=== PATIENT | male | born 1965 | race African-American/Black ===

== ENCOUNTER 2018-08-15 22:04 | Inpatient (IN) | payer MEDICARE, OTHER ==
[~2018-08-15] VITALS: Ht 322.6 cm; Wt 188.6 kg
[~2018-08-15 22:04] MED LIST: temazepam 15mg capsule PO PRN
[2018-08-15 22:28] LABS: BASOPHILS % (AUTO) 0.1 % (0-1); EOSINOPHILS # (AUTO) 0.1 X10'3 (0-0.9); EOSINOPHILS % (AUTO) 1.3 % (0-6); HEMATOCRIT 43.4 % (42.0-52.0); HEMOGLOBIN 13.9 g/dl (14.0-17.9); LYMPHOCYTES # (AUTO) 1.2 X10'3 (1.1-4.8); LYMPHOCYTES % (AUTO) 14.3 % (21-51); MEAN CORPUSCULAR HEMOGLOBIN 28.5 PG (27.0-31.0); MEAN CORPUSCULAR HGB CONC 32.1 % (33.0-36.5); MEAN CORPUSCULAR VOLUME 88.8 FL (78-98); MEAN PLATELET VOLUME 8.4 FL (7.4-10.4); MONOCYTES # (AUTO) 0.5 X10'3 (0-0.9); MONOCYTES % (AUTO) 6.1 % (2-12); NEUTROPHILS # (AUTO) 6.6 X10'3 (1.8-7.7); NEUTROPHILS % (AUTO) 78.2 % (42-75); PLATELET COUNT 263 X10'3 (140-440); RED BLOOD COUNT 4.89 X10'6 (4.70-6.10); RED CELL DISTRIBUTION WIDTH 15.5 % (11.5-14.5); WHITE BLOOD COUNT 8.5 X10'3 (4.5-11.0)
[2018-08-15] MEDS ORDERED: CARV25TA PO (22:32)
[2018-08-15] MEDS ORDERED: FURO-149 PO (22:32)
[2018-08-15] MEDS ORDERED: SIMV80TA2 PO (22:32)
[2018-08-15 22:45] LABS: ALANINE AMINOTRANSFERASE 26 U/L (12-78); ALBUMIN 2.8 G/DL (3.4-5.0); ALBUMIN/GLOBULIN RATIO 0.5 (1.1-1.5); ALKALINE PHOSPHATASE 102 IU/L (46-116); ANION GAP 6 (8-16); ASPARTATE AMINO TRANSFERASE 18 U/L (10-37); BILIRUBIN,TOTAL 0.1 MG/DL (0.1-1.0); BLOOD UREA NITROGEN 8 MG/DL (7-18); CALCIUM 8.8 MG/DL (8.5-10.1); CHLORIDE 102 MMOL/L (99-107); CREATININE 1.15 MG/DL (0.60-1.10); GLUCOSE 120 MG/DL (70-104); SODIUM 140 MMOL/L (135-145); TOTAL CARBON DIOXIDE 31.9 MMOL/L (24-32); eGFR 66 ML/MIN
[2018-08-15 22:48] LABS: PARTIAL THROMBOPLASTIN TIME 27 SECONDS (22-32); PROTHROMBIN TIME 10.1 SECONDS (9.0-12.0)
[2018-08-15] MEDS ORDERED: heparin 10,000 units/1 ML INJ IV PRN (23:00)
[2018-08-15] MEDS ORDERED: heparin 10,000 units/1 ML INJ IV ONE ×2 (23:00→23:05)
[2018-08-15] MEDS ORDERED: iohexol 350MG/ML 100ml bottle IV ONE (23:04)
[2018-08-15] MEDS ORDERED: ondansetron/PF 4mg/2ml inj IV PRN (23:10)
[2018-08-15] MEDS ORDERED: mag hydrox/Alum hydrox/simeth 30ml oral suspension PO PRN (23:10)
[2018-08-15] MEDS ORDERED: acetaminophen 325mg tablet PO PRN ×2 (23:10)
[2018-08-15] MEDS ORDERED: furosemide 10 MG/1 ML 10ml inj IV ONE (23:10)
[2018-08-15] MEDS ORDERED: diphenhydrAMINE 50 mg/ml inj IV PRN (23:10)
[2018-08-15] MEDS ORDERED: acetaminophen 650mg rectal suppository RC PRN (23:10)
[2018-08-15] MEDS ORDERED: magnesium hydroxide 30ml (MOM) UD suspension PO PRN (23:10)
[2018-08-15] MEDS ORDERED: morphine 2 MG/ML inj. syringe IV PRN (23:10)
[2018-08-15] MEDS ORDERED: metoclopramide 5 mg/ml inj IV PRN (23:10)
[2018-08-15] MEDS ORDERED: bisacodyl 10mg suppository rectal RC PRN (23:10)
[2018-08-15] MEDS ORDERED: HYDROmorphone 1 mg/ml syringe IV PRN (23:10)
[2018-08-15] MEDS ORDERED: diphenhydrAMINE 25mg capsule PO PRN (23:10)
[2018-08-15] MEDS ORDERED: hydrALAZINE 20mg/ml inj. IV PRN (23:20)
[2018-08-15 23:22] LABS: MAGNESIUM 2.3 MG/DL (1.5-2.4); PHOSPHORUS 4.1 MG/DL (2.3-4.5)
[2018-08-15 23:33] LABS: D-DIMER 8.53 MG/L FEU (0-0.50); HEMOGLOBIN A1C 6.2 % (4.5-6.2)
[2018-08-16] VITALS (7 sets, daily range): BP systolic 144–183; BP diastolic 80–114
[2018-08-16] MEDS ORDERED: normal saline 1000ml 1,000 ML IV SCH (00:15)
[2018-08-16 06:03] LABS: BASOPHILS # (AUTO) 0.1 X10'3 (0-0.2); BASOPHILS % (AUTO) 0.8 % (0-1); EOSINOPHILS # (AUTO) 0.2 X10'3 (0-0.9); EOSINOPHILS % (AUTO) 2.3 % (0-6); HEMATOCRIT 42.7 % (42.0-52.0); HEMOGLOBIN 13.6 g/dl (14.0-17.9); LYMPHOCYTES # (AUTO) 1.3 X10'3 (1.1-4.8); LYMPHOCYTES % (AUTO) 17.5 % (21-51); MEAN CORPUSCULAR HEMOGLOBIN 28.3 PG (27.0-31.0); MEAN CORPUSCULAR HGB CONC 31.8 % (33.0-36.5); MEAN CORPUSCULAR VOLUME 89.1 FL (78-98); MEAN PLATELET VOLUME 8.8 FL (7.4-10.4); MONOCYTES # (AUTO) 0.6 X10'3 (0-0.9); MONOCYTES % (AUTO) 7.3 % (2-12); NEUTROPHILS # (AUTO) 5.5 X10'3 (1.8-7.7); NEUTROPHILS % (AUTO) 72.1 % (42-75); PLATELET COUNT 235 X10'3 (140-440); RED BLOOD COUNT 4.79 X10'6 (4.70-6.10); RED CELL DISTRIBUTION WIDTH 15.5 % (11.5-14.5); WHITE BLOOD COUNT 7.7 X10'3 (4.5-11.0)
[2018-08-16 06:21] LABS: PARTIAL THROMBOPLASTIN TIME 29 SECONDS (22-32)
[2018-08-16 06:52] LABS: ALANINE AMINOTRANSFERASE 23 U/L (12-78); ALBUMIN 2.7 G/DL (3.4-5.0); ALBUMIN/GLOBULIN RATIO 0.6 (1.1-1.5); ALKALINE PHOSPHATASE 96 IU/L (46-116); ANION GAP 6 (8-16); ASPARTATE AMINO TRANSFERASE 21 U/L (10-37); BILIRUBIN,TOTAL 0.2 MG/DL (0.1-1.0); BLOOD UREA NITROGEN 9 MG/DL (7-18); BUN/CREATININE RATIO 8.1 (5.4-32.0); CALCIUM 8.7 MG/DL (8.5-10.1); CHLORIDE 103 MMOL/L (99-107); CREATININE 1.11 MG/DL (0.60-1.10); GLUCOSE 115 MG/DL (70-104); POTASSIUM 3.9 MMOL/L (3.5-5.1); SODIUM 141 MMOL/L (135-145); TOTAL PROTEIN 7.6 G/DL (6.4-8.2); eGFR 83 ML/MIN
[2018-08-16 06:55] LABS: CHOL/HDL RATIO 3.9 (0.00-4.99); CHOLESTEROL 154 MG/DL (0-200); HDL CHOLESTEROL 39 MG/DL (35-60); LDL CHOLESTEROL 97 MG/DL (50-100); TRIGLYCERIDES 110 MG/DL (20-135)
[2018-08-16] MEDS ORDERED: levoFLOXACIN-Levaquin 750MG/D5 150 ML IV SCH (08:00)
[2018-08-16] MEDS ORDERED: methylPREDNISolone sod succ 125mg/2ml vial IV SCH (08:00)
[2018-08-16] MEDS: docusate sod 100mg capsule PO SCH ×2 (08:11→20:00)
[2018-08-16] MEDS: famotidine 20mg tablet PO SCH ×2 (08:11→21:22)
[2018-08-16] MEDS: HYDROcodone/acetaminophen 10/325mg tab PO PRN (08:26)
[2018-08-16] MEDS: heparin 25,000 UNIT/250ml bag 250 ML IV SCH ×3 (09:58→10:06)
[2018-08-16] MEDS: furosemide 10 MG/1 ML 10ml inj IV SCH (16:50)
[2018-08-16] MEDS: atorvastatin 20mg tablet PO SCH (21:21)
[2018-08-16] MEDS: carVEDilol 12.5mg tablet PO SCH (21:21)
[2018-08-17] MEDS: furosemide 10 MG/1 ML 10ml inj IV SCH ×3 (00:37→15:34)
[2018-08-17 03:00] VITALS: BP 144/101
[2018-08-17 05:47] LABS: BASOPHILS % (AUTO) 0.2 % (0-1); EOSINOPHILS # (AUTO) 0.1 X10'3 (0-0.9); EOSINOPHILS % (AUTO) 0.5 % (0-6); HEMATOCRIT 43.8 % (42.0-52.0); HEMOGLOBIN 13.9 g/dl (14.0-17.9); LYMPHOCYTES # (AUTO) 1.4 X10'3 (1.1-4.8); LYMPHOCYTES % (AUTO) 11.2 % (21-51); MEAN CORPUSCULAR HEMOGLOBIN 28.2 PG (27.0-31.0); MEAN CORPUSCULAR HGB CONC 31.7 % (33.0-36.5); MEAN PLATELET VOLUME 8.8 FL (7.4-10.4); MONOCYTES # (AUTO) 0.9 X10'3 (0-0.9); MONOCYTES % (AUTO) 7.5 % (2-12); NEUTROPHILS # (AUTO) 9.7 X10'3 (1.8-7.7); NEUTROPHILS % (AUTO) 80.6 % (42-75); PLATELET COUNT 267 X10'3 (140-440); RED BLOOD COUNT 4.92 X10'6 (4.70-6.10); RED CELL DISTRIBUTION WIDTH 15.4 % (11.5-14.5); WHITE BLOOD COUNT 12.1 X10'3 (4.5-11.0)
[2018-08-17 06:00] VITALS: BP 152/104
[2018-08-17 06:05] LABS: ALANINE AMINOTRANSFERASE 22 U/L (12-78); ALBUMIN 2.6 G/DL (3.4-5.0); ALBUMIN/GLOBULIN RATIO 0.5 (1.1-1.5); ALKALINE PHOSPHATASE 97 IU/L (46-116); ANION GAP 5 (8-16); ASPARTATE AMINO TRANSFERASE 18 U/L (10-37); BILIRUBIN,TOTAL 0.2 MG/DL (0.1-1.0); BLOOD UREA NITROGEN 13 MG/DL (7-18); BUN/CREATININE RATIO 11.5 (5.4-32.0); CALCIUM 8.7 MG/DL (8.5-10.1); CHLORIDE 100 MMOL/L (99-107); CREATININE 1.13 MG/DL (0.60-1.10); GLUCOSE 111 MG/DL (70-104); POTASSIUM 4.1 MMOL/L (3.5-5.1); SODIUM 140 MMOL/L (135-145); TOTAL CARBON DIOXIDE 35.1 MMOL/L (24-32); TOTAL PROTEIN 7.8 G/DL (6.4-8.2); eGFR 82 ML/MIN
[2018-08-17] MEDS: docusate sod 100mg capsule PO SCH ×2 (08:26→20:08)
[2018-08-17] MEDS: carVEDilol 12.5mg tablet PO SCH ×2 (08:27→20:08)
[2018-08-17] MEDS: famotidine 20mg tablet PO SCH ×2 (08:27→20:07)
[2018-08-17] MEDS: enoxaparin 40mg/0.4ml syringe SUBCUT SCH (08:28)
[2018-08-17 11:00] VITALS: BP 145/110
[2018-08-17] MEDS: HYDROcodone/acetaminophen 10/325mg tab PO PRN (13:37)
[2018-08-17 15:00] VITALS: BP 150/97
[2018-08-17 18:00] VITALS: BP 141/86
[2018-08-17] MEDS ORDERED: FLU VACC QUAD 2018(5 YR UP)/PF 60 MCG/0.5 ML SYRINGE IM ONE (20:00)
[2018-08-17] MEDS ORDERED: pneumococcal 23-VAL P-sac vacc 25 mcg/0.5ml vial IMVAC ONE (20:00)
[2018-08-17] MEDS: atorvastatin 20mg tablet PO SCH (20:07)
[2018-08-17 22:00] VITALS: BP 173/115
[2018-08-18] VITALS (7 sets, daily range): BP systolic 100–177; BP diastolic 48–119
[2018-08-18] MEDS: furosemide 10 MG/1 ML 10ml inj IV SCH ×3 (00:01→16:15)
[2018-08-18 06:00] LABS: BASOPHILS % (AUTO) 0.2 % (0-1); EOSINOPHILS # (AUTO) 0.1 X10'3 (0-0.9); EOSINOPHILS % (AUTO) 0.8 % (0-6); HEMATOCRIT 46.6 % (42.0-52.0); HEMOGLOBIN 14.8 g/dl (14.0-17.9); LYMPHOCYTES # (AUTO) 1.6 X10'3 (1.1-4.8); LYMPHOCYTES % (AUTO) 15.8 % (21-51); MEAN CORPUSCULAR HEMOGLOBIN 28.3 PG (27.0-31.0); MEAN CORPUSCULAR HGB CONC 31.8 % (33.0-36.5); MEAN CORPUSCULAR VOLUME 89.1 FL (78-98); MEAN PLATELET VOLUME 8.7 FL (7.4-10.4); MONOCYTES # (AUTO) 0.6 X10'3 (0-0.9); MONOCYTES % (AUTO) 5.8 % (2-12); NEUTROPHILS # (AUTO) 7.8 X10'3 (1.8-7.7); NEUTROPHILS % (AUTO) 77.4 % (42-75); PLATELET COUNT 259 X10'3 (140-440); RED BLOOD COUNT 5.23 X10'6 (4.70-6.10); RED CELL DISTRIBUTION WIDTH 15.5 % (11.5-14.5); WHITE BLOOD COUNT 10.1 X10'3 (4.5-11.0)
[2018-08-18 06:34] LABS: ALANINE AMINOTRANSFERASE 21 U/L (12-78); ALBUMIN 2.8 G/DL (3.4-5.0); ALBUMIN/GLOBULIN RATIO 0.5 (1.1-1.5); ALKALINE PHOSPHATASE 110 IU/L (46-116); ANION GAP 2 (8-16); ASPARTATE AMINO TRANSFERASE 20 U/L (10-37); BILIRUBIN,TOTAL 0.2 MG/DL (0.1-1.0); BLOOD UREA NITROGEN 16 MG/DL (7-18); BUN/CREATININE RATIO 12.9 (5.4-32.0); CALCIUM 8.8 MG/DL (8.5-10.1); CHLORIDE 98 MMOL/L (99-107); CREATININE 1.24 MG/DL (0.60-1.10); GLUCOSE 107 MG/DL (70-104); SODIUM 138 MMOL/L (135-145); TOTAL CARBON DIOXIDE 38.3 MMOL/L (24-32); TOTAL PROTEIN 8.1 G/DL (6.4-8.2); eGFR 73 ML/MIN
[2018-08-18] MEDS: docusate sod 100mg capsule PO SCH ×2 (07:43→20:00)
[2018-08-18] MEDS: carVEDilol 12.5mg tablet PO SCH ×2 (07:43→20:44)
[2018-08-18] MEDS: famotidine 20mg tablet PO SCH ×2 (07:44→20:43)
[2018-08-18] MEDS: enoxaparin 40mg/0.4ml syringe SUBCUT SCH (07:45)
[2018-08-18] MEDS: levoFLOXACIN-Levaquin 750MG/D5 150 ML IV SCH (16:14)
[2018-08-18] MEDS: enoxaparin 100mg/ml syringe SUBCUT SCH ×2 (16:26→20:45)
[2018-08-18] MEDS: enoxaparin 50mg/0.5ml (from 3ml vial) syringe SUBCUT SCH ×2 (16:27→20:45)
[2018-08-18] MEDS: atorvastatin 20mg tablet PO SCH (20:43)
[2018-08-19] MEDS: furosemide 10 MG/1 ML 10ml inj IV SCH ×3 (00:34→09:12)
[2018-08-19 00:35] VITALS: BP 162/109
[2018-08-19 02:00] VITALS: BP 158/97
[2018-08-19] MEDS: HYDROcodone/acetaminophen 10/325mg tab PO PRN (02:21)
[2018-08-19 06:45] LABS: BASOPHILS % (AUTO) 0.1 % (0-1); EOSINOPHILS # (AUTO) 0.1 X10'3 (0-0.9); HEMATOCRIT 45.9 % (42.0-52.0); HEMOGLOBIN 14.8 g/dl (14.0-17.9); LYMPHOCYTES # (AUTO) 1.6 X10'3 (1.1-4.8); LYMPHOCYTES % (AUTO) 15.8 % (21-51); MEAN CORPUSCULAR HEMOGLOBIN 28.4 PG (27.0-31.0); MEAN CORPUSCULAR HGB CONC 32.2 % (33.0-36.5); MEAN CORPUSCULAR VOLUME 88.4 FL (78-98); MEAN PLATELET VOLUME 9.1 FL (7.4-10.4); MONOCYTES # (AUTO) 0.6 X10'3 (0-0.9); MONOCYTES % (AUTO) 6.3 % (2-12); NEUTROPHILS # (AUTO) 7.6 X10'3 (1.8-7.7); NEUTROPHILS % (AUTO) 76.8 % (42-75); PLATELET COUNT 243 X10'3 (140-440); RED BLOOD COUNT 5.19 X10'6 (4.70-6.10); RED CELL DISTRIBUTION WIDTH 15.3 % (11.5-14.5)
[2018-08-19 07:00] VITALS: BP 151/101
[2018-08-19 07:04] LABS: ALANINE AMINOTRANSFERASE 27 U/L (12-78); ALBUMIN 2.7 G/DL (3.4-5.0); ALBUMIN/GLOBULIN RATIO 0.5 (1.1-1.5); ALKALINE PHOSPHATASE 101 IU/L (46-116); ANION GAP 3 (8-16); ASPARTATE AMINO TRANSFERASE 21 U/L (10-37); BILIRUBIN,TOTAL 0.4 MG/DL (0.1-1.0); BLOOD UREA NITROGEN 19 MG/DL (7-18); BUN/CREATININE RATIO 15.6 (5.4-32.0); CALCIUM 8.6 MG/DL (8.5-10.1); CHLORIDE 98 MMOL/L (99-107); CREATININE 1.22 MG/DL (0.60-1.10); GLUCOSE 113 MG/DL (70-104); POTASSIUM 3.6 MMOL/L (3.5-5.1); SODIUM 136 MMOL/L (135-145); TOTAL CARBON DIOXIDE 34.9 MMOL/L (24-32); TOTAL PROTEIN 7.8 G/DL (6.4-8.2); eGFR 75 ML/MIN
[2018-08-19] MEDS: docusate sod 100mg capsule PO SCH (08:00)
[2018-08-19] MEDS: levoFLOXACIN-Levaquin 750MG/D5 150 ML IV SCH (08:00)
[2018-08-19] MEDS: enoxaparin 100mg/ml syringe SUBCUT SCH (08:46)
[2018-08-19] MEDS: carVEDilol 12.5mg tablet PO SCH (08:46)
[2018-08-19] MEDS: famotidine 20mg tablet PO SCH (08:46)
[2018-08-19 09:02] VITALS: BP 132/100
[2018-08-19] MEDS: enoxaparin 50mg/0.5ml (from 3ml vial) syringe SUBCUT SCH (10:21)
[2018-08-19] MEDS ORDERED: APIX5TAB3 PO (11:03)
[2018-08-19] MEDS ORDERED: SIMV80TA2 PO (11:03)
[2018-08-19] MEDS ORDERED: CARV25TA PO (11:03)
[2018-08-19] MEDS ORDERED: FURO-149 PO (11:03)
[2018-08-19] MEDS ORDERED: LEVO750T21 PO (11:03)
== END 2018-08-19 10:40 | disposition left against medical advice (07) | DRG 280 ==
LOC: ER 22:05 → ED HOLD 22:23 → PCU 3S 08-16 00:30 → CMPBEDREQ 08-16 00:30 → PCU 3S 08-18 11:52
PROVIDERS: ADMIT Family Medicine; ATTEND Hospitalist
PROC: B32T1ZZ Computerized Tomography (CT Scan) of Left Pulmonary Artery using Low Osmolar Contrast (ICD-10-PCS; principal; 2018-08-15)
PROC: B3201ZZ Computerized Tomography (CT Scan) of Thoracic Aorta using Low Osmolar Contrast (ICD-10-PCS; 2018-08-15)
PROC: B32S1ZZ Computerized Tomography (CT Scan) of Right Pulmonary Artery using Low Osmolar Contrast (ICD-10-PCS; 2018-08-15)
PROC: 5A09357 Assistance with Respiratory Ventilation, Less than 24 Consecutive Hours, Continuous Positive Airway Pressure (ICD-10-PCS; 2018-08-17)
PROC: 5A09357 Assistance with Respiratory Ventilation, Less than 24 Consecutive Hours, Continuous Positive Airway Pressure (ICD-10-PCS; 2018-08-18)
PROC: 5A09357 Assistance with Respiratory Ventilation, Less than 24 Consecutive Hours, Continuous Positive Airway Pressure (ICD-10-PCS; 2018-08-19)
PROC: 3E0234Z Introduction of Serum, Toxoid and Vaccine into Muscle, Percutaneous Approach (ICD-10-PCS; 2018-08-19)
DX: I11.0 Hypertensive heart disease with heart failure (principal); I21.A1 Myocardial infarction type 2; I26.09 Other pulmonary embolism with acute cor pulmonale; J18.9 Pneumonia, unspecified organism; J44.1 Chronic obstructive pulmonary disease with (acute) exacerbation; J44.0 Chronic obstructive pulmonary disease with (acute) lower respiratory infection; Z68.44 Body mass index [BMI] 60.0-69.9, adult; I50.33 Acute on chronic diastolic (congestive) heart failure; E66.01 Morbid (severe) obesity due to excess calories; F17.220 Nicotine dependence, chewing tobacco, uncomplicated; I25.10 Atherosclerotic heart disease of native coronary artery without angina pectoris; M16.0 Bilateral primary osteoarthritis of hip; E78.5 Hyperlipidemia, unspecified; N28.1 Cyst of kidney, acquired; G47.33 Obstructive sleep apnea (adult) (pediatric); I25.2 Old myocardial infarction; Z23 Encounter for immunization
CPT/HCPCS: 36415; 71045; 71275; 73522; 80053; 80061; 83036; 83735; 83880; 84100; 84439; 84443; 84484; 85025; 85379; 85610; 85730; 87070; 93005; 93306; 93970; 94660; 94760; 97116; 97162; 97530; 99291; G0378; J0360; J1644; J1650; J1940; J1956; J2930; Q2037; Q9967

== ENCOUNTER 2018-09-15 14:24 | Emergency (ER) | payer MEDICARE, OTHER ==
[~2018-09-15] VITALS: Ht 170.2 cm; Wt 181.8 kg
[~2018-09-15 14:24] MED LIST changes: +APIX5TAB3 PO; +CARV25TA PO; +FURO-149 PO; +SIMV80TA2 PO; -temazepam 15mg capsule PO PRN
[2018-09-15 15:10] LABS: BASOPHILS % (AUTO) 0.3 % (0-1); EOSINOPHILS # (AUTO) 0.2 X10'3 (0-0.9); EOSINOPHILS % (AUTO) 2.4 % (0-6); HEMATOCRIT 43.9 % (42.0-52.0); LYMPHOCYTES # (AUTO) 1.1 X10'3 (1.1-4.8); LYMPHOCYTES % (AUTO) 13.1 % (21-51); MEAN CORPUSCULAR HEMOGLOBIN 28.2 PG (27.0-31.0); MEAN CORPUSCULAR VOLUME 88.2 FL (78-98); MEAN PLATELET VOLUME 7.9 FL (7.4-10.4); MONOCYTES # (AUTO) 0.5 X10'3 (0-0.9); MONOCYTES % (AUTO) 6.7 % (2-12); NEUTROPHILS # (AUTO) 6.4 X10'3 (1.8-7.7); NEUTROPHILS % (AUTO) 77.5 % (42-75); PLATELET COUNT 246 X10'3 (140-440); RED BLOOD COUNT 4.98 X10'6 (4.70-6.10); RED CELL DISTRIBUTION WIDTH 15.9 % (11.5-14.5); WHITE BLOOD COUNT 8.2 X10'3 (4.5-11.0)
[2018-09-15 15:36] LABS: ALANINE AMINOTRANSFERASE 26 U/L (12-78); ALBUMIN/GLOBULIN RATIO 0.6 (1.1-1.5); ALKALINE PHOSPHATASE 93 IU/L (46-116); ANION GAP 8 (8-16); ASPARTATE AMINO TRANSFERASE 23 U/L (10-37); BILIRUBIN,TOTAL 0.2 MG/DL (0.1-1.0); BLOOD UREA NITROGEN 11 MG/DL (7-18); BUN/CREATININE RATIO 8.9 (5.4-32.0); CALCIUM 8.7 MG/DL (8.5-10.1); CHLORIDE 100 MMOL/L (99-107); CREATININE 1.23 MG/DL (0.60-1.10); GLUCOSE 117 MG/DL (70-104); SODIUM 139 MMOL/L (135-145); TOTAL CARBON DIOXIDE 31.1 MMOL/L (24-32); TOTAL PROTEIN 8.2 G/DL (6.4-8.2); eGFR 74 ML/MIN
[2018-09-15] MEDS ORDERED: iohexol 350MG/ML 100ml bottle IV ONE (16:04)
[2018-09-15 18:23] VITALS: BP 172/112
[2018-09-15] MEDS ORDERED: heparin 25,000 UNIT/250ml bag 250 ML IV SCH (18:43)
[2018-09-15] MEDS ORDERED: heparin 10,000 units/1 ML INJ IV PRN (18:45)
[2018-09-15] MEDS ORDERED: heparin 10,000 units/1 ML INJ IV ONE (18:45)
[2018-09-15] MEDS ORDERED: apixaban 5mg tablet PO SCH (19:00)
[2018-09-15] MEDS ORDERED: LEVO750T21 PO (19:10)
[2018-09-15] MEDS ORDERED: APIX5TAB3 PO (19:10)
[2018-09-15] MEDS ORDERED: FURO80TA87 PO (19:10)
== END 2018-09-15 20:22 | disposition home or self-care (01) ==
LOC: ER 14:25
DX: I26.99 Other pulmonary embolism without acute cor pulmonale (principal); I87.8 Other specified disorders of veins; I25.10 Atherosclerotic heart disease of native coronary artery without angina pectoris; I50.9 Heart failure, unspecified; I25.2 Old myocardial infarction; Z88.8 Allergy status to other drugs, medicaments and biological substances; Z79.899 Other long term (current) drug therapy
CPT/HCPCS: 36415; 71045; 71275; 80053; 83605; 83880; 84484; 85025; 87040; 93005; 99284; Q9967